=== PATIENT | female | born 1980 | race Two or more races ===

== ENCOUNTER 2018-06-25 18:23 | Emergency (ER) | payer BC, OTHER ==
[~2018-06-25] VITALS: Ht 157.5 cm; Wt 65.8 kg
--- NOTE | 2018-06-25 18:57 | NUR ---
Patient discharged to home in stable conditon. Written and verbal after care instructions given. Patient verbalizes understanding of instructions.
== END 2018-06-25 18:58 | disposition home or self-care (01) ==
LOC: ER 18:25
DX: J06.9 Acute upper respiratory infection, unspecified (principal); E78.5 Hyperlipidemia, unspecified
CPT/HCPCS: 71045; A4663

== ENCOUNTER 2021-08-17 07:20 | Outpatient (CLI) | payer BC, OTHER | END 2021-08-17 09:20 | disposition home or self-care (01) | LOC: LAB 07:20 | PROVIDERS: ATTEND Internal Medicine Gastroenterology | DX: Z01.812 Encounter for preprocedural laboratory examination (principal); Z20.822 Contact with and (suspected) exposure to COVID-19 ==

== ENCOUNTER 2021-08-20 08:13 | Day surgery (SDC) | payer BC, OTHER ==
[2021-08-20] MEDS ORDERED: LIDOCAINE-MPF 2% 5 ML VIAL IJ ONE (08:14)
[2021-08-20] MEDS ORDERED: PROPOFOL 200 MG/20 ML BOTTLE IV ONE (08:14)
[2021-08-20 08:40] LABS: HEMATOCRIT 36.8 % (31.2-41.9); MEAN CORPUSCULAR HEMOGLOBIN 28.6 uug (24.7-32.8); MEAN CORPUSCULAR VOLUME 84.2 fL (75.5-95.3); PLATELET COUNT (AUTO) 417 K/uL (179-408)
[2021-08-20 08:43] LABS: *BILIRUBIN,URIN NEGATIVE (NEGATIVE); *BLOOD, URINE 2+ (NEGATIVE); *CLARITY,URINE CLEAR (CLEAR); *COLOR,URINE YELLOW (YELLOW); *KETONES,URINE NEGATIVE (NEGATIVE); *UROBILINOGEN,URINE 0.2 E.U./dl (NORMAL); LEUKOCYTE ESTERASE ,URINE NEGATIVE (NEGATIVE); NITRITE, URINE NEGATIVE (NEGATIVE); PH,URINE 5.5 (5.0-8.0); UGLUCOSE NEGATIVE (NEGATIVE)
[2021-08-20 08:47] LABS: *URINE HCG, QUAL NEG (NEGATIVE)
[2021-08-20 08:47] LABS: CREATININE 0.8 mg/dL (0.6-1.3); POTASSIUM 3.8 mmol/L (3.5-5.1)
[2021-08-20 08:52] LABS: BILIRUBIN,TOTAL 0.7 mg/dL (0.2-1.0)
[2021-08-20 11:19] LABS: BACTERIA,URINE RARE /HPF (NONE SEEN); MUCUS,URINE FEW /LPF (0-FEW); SQUAMOUS EPITHELIAL CELL,UR FEW /HPF (NONE SEEN); WBC,URINE 0-3 /HPF (0-3)
== END 2021-08-20 11:35 | disposition home or self-care (01) ==
LOC: DS 08:13
PROVIDERS: ATTEND Internal Medicine Gastroenterology
DX: D64.9 Anemia, unspecified (principal); K64.8 Other hemorrhoids; K63.89 Other specified diseases of intestine; K31.89 Other diseases of stomach and duodenum; K29.50 Unspecified chronic gastritis without bleeding; E66.9 Obesity, unspecified; Z68.30 Body mass index [BMI] 30.0-30.9, adult; Z79.899 Other long term (current) drug therapy; Z98.890 Other specified postprocedural states
CPT/HCPCS: 36415; 43239; 45378; 80053; 81001; 84703; 85025; 85730; 88305; 88313; 88342; J3490; J7120; A4663